=== PATIENT | female | born 1975 | race Caucasian/White ===

== ENCOUNTER 2017-05-14 23:08 | Emergency (ER) | payer BC ==
[~2017-05-14] VITALS: Ht 160 cm; Wt 79.4 kg
[2017-05-14 23:15] VITALS: BP_SYST 128
--- NOTE | 2017-05-14 23:15 | NUR ---
Patient to ER bed 6 to gown for evaluation. Side rails up. Report given to MACHO GIBSON.
--- NOTE | 2017-05-14 23:15 | NUR ---
Patient AOx4, ambulatory, presents to ER with complaint of bilateral arm and hand numbness and feet at night, and tingling around mouth x3 weeks intermittently. No other symptoms or complaints. Patient states no medical hx and does not take any meds.
[2017-05-14] MEDS ORDERED: NACL 0.9% 1,000 ML IV ONE (23:19)
--- NOTE | 2017-05-14 23:20 | NUR ---
ER MD Lawson at bedside for medical evaluation.
[2017-05-14] MEDS ORDERED: ASPIRIN 325 MG TABLET PO ONE (23:30)
[2017-05-14 23:31] LABS: BILIRUBIN,URINE NEGATIVE (NEGATIVE); BLOOD, URINE 3+ (NEGATIVE); CLARITY/URINE CLEAR (CLEAR); COLOR,URINE YELLOW (YELLOW); GLUCOSE,URINE NEGATIVE (NEGATIVE); KETONES,URINE NEGATIVE (NEGATIVE); LEUKOCYTE ESTERASE ,URINE NEGATIVE (NEGATIVE); NITRITE, URINE POSITIVE (NEGATIVE); PROTEIN URINE TRACE (NEGATIVE); UROBILINOGEN,URINE 0.2 (0.2-1.0)
--- NOTE | 2017-05-14 23:35 | NUR ---
# 20 gauge angiocath placed to LAC. Use of asceptic technique. Opsite placed over site. Blood return noted. Blood for lab drawn from site. Flushed with 10 cc of normal saline. No evidence of infiltration noted. Patient tolerated well.
[2017-05-14 23:38] LABS: BACTERIA,URINE MODERATE /HPF (None Seen)
[2017-05-14 23:43] LABS: BASOPHILS % (AUTO) 0.6 % (0.0-2.0); EOSINOPHILS # (AUTO) 0.3 K/uL (0.0-0.4); EOSINOPHILS % (AUTO) 3.9 % (0.0-4.0); HEMATOCRIT 36.9 % (36-48); HEMOGLOBIN 12.5 g/dL (12.0-16.0); LYMPHOCYTES # (AUTO) 2.2 K/uL (1.0-5.5); LYMPHOCYTES % (AUTO) 27.6 % (20.5-51.5); MEAN CORPUSCULAR HEMOGLOBIN 29 pg (27-31); MEAN CORPUSCULAR HGB CONC 34 % (32-36); MEAN CORPUSCULAR VOLUME 86 fL (79.0-98.0); MONOCYTES # (AUTO) 0.5 K/uL (0.0-1.0); MONOCYTES % (AUTO) 6.2 % (1.7-9.3); NEUTROPHILS # (AUTO) 4.8 K/uL (1.8-7.7); NEUTROPHILS % (AUTO) 61.7 % (40.0-70.0); PLATELET COUNT (AUTO) 365 K/uL (130-430); RED CELL DISTRIBUTION WIDTH 12.5 % (9.0-15.0); WHITE BLOOD COUNT (AUTO) 7.8 K/uL (4.8-10.8)
[2017-05-14 23:54] LABS: CREATININE 0.58 mg/dL (0.55-1.30); POTASSIUM 3.6 mmol/L (3.5-5.1)
[2017-05-14 23:58] LABS: ALBUMIN 4.1 g/dL (3.4-4.8); TOTAL BILIRUBIN 0.3 mg/dL (0.0-1.0)
[2017-05-15 00:10] LABS: PROTHROMBIN TIME 9.8 SECS (9.5-12.5)
--- NOTE | 2017-05-15 00:12 | NUR ---
No adverse reactions noted after medication administration. Will continue to monitor.
[2017-05-15] MEDS ORDERED: cefTRIAXone 1 GM VIAL ONE (00:25)
[2017-05-15 00:36] LABS: CKMB RELATIVE INDEX 0.5 (0.0-2.9); CREATINE KINASE MB 1.2 ng/mL (0-3.6)
[2017-05-15 01:01] VITALS: BP_SYST 139
--- NOTE | 2017-05-15 01:01 | NUR ---
Patient given written and verbal discharge instructions and verbalizes understanding. ER MD discussed with patient the results and treatment provided. Patient in stable condition. ID arm band removed. IV catheter removed intact and dressing applied, no active bleeding. Rx of Tramadol and Keflex given. Patient educated on pain management and to follow up with PMD. Pain Scale 0/10. Opportunity for questions provided and answered.
== END 2017-05-15 01:01 | disposition home or self-care (01) ==
LOC: SED 23:08
DX: G72.3 Periodic paralysis (principal); N39.0 Urinary tract infection, site not specified; M79.671 Pain in right foot; M79.672 Pain in left foot
CPT/HCPCS: 36415; 71045; 80053; 81000; 81025; 82150; 82550; 82553; 83690; 83735; 84484; 85025; 85610; 85730; 87086; 96361; 96365; 99285; J0696; J7030; 93005; J7060